=== PATIENT | female | born 1960 | race Two or more races ===

== ENCOUNTER 2022-01-04 11:45 | Emergency (ER) | payer MEDICAID, OTHER ==
[~2022-01-04] VITALS: Ht 167.6 cm; Wt 99.8 kg
[2022-01-04 12:00] VITALS: BP 126/78
[2022-01-04 13:28] LABS: Urine Bacteria FEW /hpf (None Seen); Urine Blood 2+ /uL (Negative); Urine Mucus FEW (None Seen); Urine Specific Gravity 1.018 (1.001-1.035); Urine WBC 65 /hpf (0 - 5)
[2022-01-04] MEDS ORDERED: PHEN200T16 PO (13:37)
[2022-01-04] MEDS ORDERED: CIPR-173 PO (13:37)
[2022-01-04] MEDS ORDERED: METR500T PO (13:37)
== END 2022-01-04 13:40 | disposition home or self-care (01) ==
LOC: ER 11:45
DX: N39.0 Urinary tract infection, site not specified (principal); N76.0 Acute vaginitis; B96.89 Other specified bacterial agents as the cause of diseases classified elsewhere; E11.9 Type 2 diabetes mellitus without complications; E03.9 Hypothyroidism, unspecified; Z90.49 Acquired absence of other specified parts of digestive tract; Z79.2 Long term (current) use of antibiotics; Z79.899 Other long term (current) drug therapy; Z88.5 Allergy status to narcotic agent
CPT/HCPCS: 81001; 87210